=== PATIENT | female | born 1970 | race Caucasian/White ===

== ENCOUNTER 2017-05-10 17:21 | Emergency (ER) | payer SELFPAY ==
[2017-05-10] MEDS ORDERED: ONDANSETRON 4 MG TAB.RAPDIS PO ONE (19:06)
[2017-05-10] MEDS ORDERED: IBUPROFEN 800 MG TABLET PO ONE (19:06)
[2017-05-10] MEDS ORDERED: DIPH/PERTUSS(ACELL)/TETANUS VAC/PF 0.5 ML SYR (>=10YO) IM ONE (19:06)
[2017-05-10] MEDS ORDERED: AMOXICILLIN TR/POT CLAVULANATE 500-125 MG TAB PO ONE (19:06)
[2017-05-10] MEDS ORDERED: AMOXICILLIN TRIHYDRATE 500 MG CAPSULE PO ONE (19:06)
[2017-05-10] MEDS ORDERED: ACETAMINOPHEN 325 MG TABLET PO ONE (19:06)
--- NOTE | 2017-05-10 19:07 | ER Document Report ---
HPI - HPI Patient complains to provider of: dogbite right forearm, left dorsal hand Onset: This afternoon - 1:30 pm Onset/Duration: Sudden Pain Level: 3 Context: 47-year-old female bitten by her neighbor's dog who broke through a glass door that her right forearm and her left hand at 1:30 this afternoon. Animal bite form was completed and animal control had been contacted prior to the emergency room visit. Tetanus is not current no known allergies. Patient concerned that the dog bit down to the bone Associated Symptoms: None Exacerbated by: Movement Relieved by: Denies Similar symptoms previously: No Recently seen / treated by doctor: No - ROS ROS below otherwise negative: Yes Systems Reviewed and Negative: Yes All other systems reviewed and negative - REPRODUCTIVE Reproductive: DENIES: : - MUSCULOSKELETAL Musculoskeletal: DENIES: Swelling Notes: see above, 2 punctures dorsal mid right forearm, one puncture volar right mid forearm, superficial abrasion left dorsal hand. both arms/hands with FROM, no sign of infection or tenosynovitis at this time., no compartment syndrome. N/V intact distally. - DERM Skin Color: Other - see above Past Medical History - General Information source: Patient - Social History Smoking Status: Current Some Day Smoker Frequency of alcohol use: Occasional Drug Abuse: None Lives with: Family Family History: Reviewed & Not Pertinent Patient has suicidal ideation: No Patient has homicidal ideation: No - Past Medical History Cardiac Medical History: Reports: Hx Hypertension Renal/ Medical History: Denies: Hx Peritoneal Dialysis Psychiatric Medical History: Reports: Hx Attention Deficit Hyperactivity Disorder Past Surgical History: Reports: Hx Breast Surgery - reduction age 18 - Immunizations Hx Diphtheria, Pertussis, Tetanus Vaccination: Yes Vertical Provider Document - CONSTITUTIONAL Agree With Documented VS: Yes Exam Limitations: No Limitations - INFECTION CONTROL TRAVEL OUTSIDE OF THE [place] IN LAST 30 DAYS: No - NECK Neck: Supple - RESPIRATORY O2 Sat by Pulse Oximetry: 95 - MUSCULOSKELETAL/EXTREMETIES Musculoskeletal/Extremeties: MAEW, FROM, Tender - dorsal right forearm 2 punctures, 1 puncture mid right volar forearm, abrasion dorsal left hand Notes: no signs of compartment , infection, or tenosynovitis - NEURO Level of Consciousness: Awake, Alert Motor/Sensory: No Motor Deficit, No Sensory Deficit - DERM Notes: see above Course - Re-evaluation Re-evalutation: 05/10/17 20:00 Patient states she cannot afford Augmentin she wants something on the $4 list and according to [place] guide I can use Septra DS and I will add cephalexin to cover staph and strep better. Have the patient return tomorrow for recheck. xray negative for FB or bone injury. 05/11/17 16:56 - Vital Signs Vital signs: Temp Pulse Resp BP Pulse Ox 98.9 F 84 20 152/84 H 95 05/10/17 18:03 05/10/17 18:03 05/10/17 18:03 05/10/17 18:03 05/10/17 18:03 Discharge - Discharge Clinical Impression: Left dorsal hand dog bite Dog bite of right forearm Qualifiers: Encounter type: initial encounter Qualified Code(s): S51.851A - Open bite of right forearm, initial encounter Condition: Good Disposition: HOME, SELF-CARE Instructions: Animal Bites ([facility]), Cephalexin ([facility]), Sling to be Used ([facility]), Trimethoprim-Sulfa ([facility]), Warm Packs ([facility]) Additional Instructions: elevate right arm warm compress return for wound check to the ER Prescriptions: Cephalexin Monohydrate [Keflex 500 mg Capsule] 500 mg PO QID #28 capsule Oxycodone HCl/Acetaminophen [Percocet 5-325 mg Tablet] 1 - 2 tab PO ASDIR PRN # 10 tablet PRN Reason: Sulfamethoxazole/Trimethoprim [Sulfamethoxazole-Tmp Ds Tablet] 1 each PO BID # 14 tablet Forms: Return to Work Referrals: SHRUTHI FRANCO MD [Primary Care Provider] - Follow up as needed
[2017-05-10] MEDS ORDERED: OXYCODONE HCL IR 5 MG TABLET PO ONE (19:31)
--- NOTE | 2017-05-10 20:03 | RADIOLOGY REPORT (SQ) ---
EXAM DESCRIPTION: FOREARM RIGHT COMPLETED DATE/TIME: 05/10/2017 7:44 pm REASON FOR STUDY: dogbite COMPARISON: None. NUMBER OF VIEWS: Two views. TECHNIQUE: Two radiographic images acquired of the right forearm, including elbow and wrist in at le ast one projection. LIMITATIONS: None. FINDINGS: MINERALIZATION: Normal. BONES: No acute fracture. No worrisome bone lesions. SOFT TISSUES: Mild swelling. No radiopaque foreign body. OTHER: No other significant finding. IMPRESSION: No fracture or radiopaque foreign body. TECHNICAL DOCUMENTATION: JOB ID: [id number] [place]-72 2010 [employer]- All Rights Reserved
[2017-05-10 20:43] VITALS: BP 135/88
== END 2017-05-10 20:32 | disposition home or self-care (01) ==
LOC: ER 17:21
DX: S51.851A Open bite of right forearm, initial encounter (principal); S60.572A Other superficial bite of hand of left hand, initial encounter; W54.0XXA Bitten by dog, initial encounter; I10 Essential (primary) hypertension; F17.200 Nicotine dependence, unspecified, uncomplicated
CPT/HCPCS: 99283; 90471; 73090; 90715; S0119

== ENCOUNTER 2017-05-11 18:36 | Emergency (ER) | payer SELFPAY ==
[2017-05-11] MEDS ORDERED: AMPICILLIN SOD/SULBACTAM 3 GM VIAL IV ONE (19:07)
--- NOTE | 2017-05-11 19:10 | ER Document Report ---
HPI - HPI Patient complains to provider of: Dog bite wound check Onset: Yesterday Pain Level: 1 Context: 47-year-old female returns for a dog bite wound check. She was given Augmentin in the emergency department and the wounds were cleaned yesterday. She states she needed antibiotics from the $4 list so I gave her cephalexin and Septra. She comes back today with reddness outside the bandage/ No fever. Associated Symptoms: None Exacerbated by: Denies Relieved by: Denies Recently seen / treated by doctor: Yes - ROS ROS below otherwise negative: Yes Systems Reviewed and Negative: Yes All other systems reviewed and negative - REPRODUCTIVE Reproductive: DENIES: : Past Medical History - General Information source: Patient - Social History Smoking Status: Unknown if Ever Smoked Frequency of alcohol use: None Drug Abuse: None Lives with: Family Family History: Reviewed & Not Pertinent - Past Medical History Cardiac Medical History: Reports: Hx Hypertension Renal/ Medical History: Denies: Hx Peritoneal Dialysis Psychiatric Medical History: Reports: Hx Attention Deficit Hyperactivity Disorder Past Surgical History: Reports: Hx Breast Surgery - reduction age 18 - Immunizations Hx Diphtheria, Pertussis, Tetanus Vaccination: Yes Vertical Provider Document - CONSTITUTIONAL Agree With Documented VS: Yes Exam Limitations: No Limitations - INFECTION CONTROL TRAVEL OUTSIDE OF THE [place] IN LAST 30 DAYS: No - NECK Neck: Supple - MUSCULOSKELETAL/EXTREMETIES Musculoskeletal/Extremeties: MAEW, FROM, Tender - mild tender to the erhthema surrounding the most proximal dorsal right forearm wound, firm pressure applied , no pus, only clear exudate. - NEURO Level of Consciousness: Awake, Alert Motor/Sensory: No Motor Deficit, No Sensory Deficit - DERM Integumentary: Warm, Dry Course - Re-evaluation Re-evalutation: 05/11/17 20:52 Patient stated that the neighbor about the antibiotics and she can reapproach them about purchasing the Augmentin. She can also go to [facility] and the Augmentin should be $28. Dr. Lee also looked at the bite stated that she does need to take the Augmentin. Unasyn has been given. The erythema has been circled with a pen and told her that she needs to follow-up if the erythema goes beyond the pen manasa. If the erythema decreases in surface area she can just continue with the augmentin, no follow up needed. I also stressed to her that she needs to elevate this above her heart and keep heat on it all night. 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 05/11/17 20:53 Discharge - Discharge Clinical Impression: local inflammation dogbite Condition: Good Disposition: HOME, SELF-CARE Instructions: Animal Bites ([facility]), Augmentin ([facility]), Elevation & Warmth ([facility]) Additional Instructions: Elevate her arm above your heart Warm compress all night Augmentin twice a day Go to [facility] in the Augmentin will be cheaper return to the emergency room if the erythema or redness goes outside the pen pablo Prescriptions: Amoxicillin/Potassium Clav [Augmentin 875-125 Tablet] 1 each PO BID #20 tablet Referrals: SHRUTHI FRANCO MD [Primary Care Provider] - Follow up as needed
[2017-05-11 21:04] VITALS: BP 138/93
== END 2017-05-11 21:05 | disposition home or self-care (01) ==
LOC: ER 18:36
DX: S51.851D Open bite of right forearm, subsequent encounter (principal); W54.0XXD Bitten by dog, subsequent encounter
CPT/HCPCS: 99283; 96365; J0295

== ENCOUNTER 2018-04-24 21:47 | Emergency (ER) | payer SELFPAY ==
[2018-04-24 22:11] VITALS: BP 164/89
== END 2018-04-24 23:19 | disposition left against medical advice (07) ==
LOC: ER 21:47
DX: Z53.21 Procedure and treatment not carried out due to patient leaving prior to being seen by health care provider (principal)